=== PATIENT | female | born 1965 | race African-American/Black ===

== ENCOUNTER 2016-12-20 11:15 | Inpatient (IN) | payer OTHER ==
[2016-12-20 12:26] VITALS: BMI 17.2
--- NOTE | 2016-12-20 16:46 | HP ---
CIWA Score - CIWA Score Nausea/Vomitin-Mild Nausea/No Vomiting Muscle Tremors: 3 Anxiety: 3 Agitation: 3 Paroxysmal Sweats: 1-Minimal Palms Moist Orientation: 3-Disoriented Date>2 days Tacttile Disturbances: 0-None Auditory Disturbances: 0-None Visual Disturbances: 2-Mild Sensitivity Headache: 0-None Present CIWA-Ar Total Score: 16 Admission ROS BHS - HPI Chief Complaint: withdrawal sx Allergies/Adverse Reactions: Allergies Allergy/AdvReac Type Severity Reaction Status Date / Time No Known Drug Allergies Allergy Verified 12/20/16 14:04 coconut Allergy Uncoded 12/20/16 14:04 History of Present Illness: 51 yeas old female with long history of alcohol cocaine nicotine dependence, has hiv since 1988, hypertension, asthma and schizophrenia is admitted to detox Exam Limitations: No Limitations - Ebola screening Have you traveled outside of the country in the last 21 days: No Have you had contact with anyone from an Ebola affected area: No Have you been sick,other than usual withdrawal symptoms: No Do you have a fever: No - Review of Systems Constitutional: Chills, Loss of Appetite, Changes in sleep, Unintentional Wgt. Loss, Unexplained wgt Loss EENT: reports: Dental Problems (multiple missing teeth) Respiratory: reports: SOB with Exertion (asthma) Cardiac: reports: No Symptoms Reported GI: reports: Diarrhea, Nausea, Poor Appetite, Poor Fluid Intake, Abdominal cramping : reports: No Symptoms Reported Musculoskeletal: reports: Muscle Pain (legs) Integumentary: reports: Dryness Neuro: reports: Tremors Endocrine: reports: No Symptoms Reported Hematology: reports: No Symptoms Reported Psychiatric: reports: Judgement Intact, Anxious, Depressed Other Systems: Reviewed and Negative Patient History - Patient Medical History Hx Anemia: No Hx Asthma: Yes Hx Chronic Obstructive Pulmonary Disease (COPD): No Hx Cancer: No Hx Cardiac Disorders: No Hx Congestive Heart Failure: No Hx Hypertension: Yes Hx Hypercholesterolemia: No Hx Pacemaker: No HX Cerebrovascular Accident: No Hx Seizures: No Hx Dementia: No Hx Diabetes: No Hx Gastrointestinal Disorders: No Hx Liver Disease: No Hx Genitourinary Disorders: No Hx Sexually Transmitted Disorders: No Hx Renal Disease (ESRD): No Hx Thyroid Disease: No Hx Human Immunodeficiency Virus (HIV): Yes (1988) Hx Hepatitis C: No Hx Depression: No Hx Suicide Attempt: Yes (jump out 14fl window, stop by brother) Hx Bipolar Disorder: No Hx Schizophrenia: Yes - Patient Surgical History Past Surgical History: No Hx Neurologic Surgery: No Hx Cataract Extraction: No Hx Cardiac Surgery: No Hx Lung Surgery: No Hx Breast Surgery: No Hx Breast Biopsy: No Hx Abdominal Surgery: No Hx Appendectomy: No Hx Cholecystectomy: No Hx Genitourinary Surgery: No Hx Section: Yes (1999) Hx Orthopedic Surgery: No - PPD History Previous Implant?: Yes Documented Results: Positive w/o proof Implanted On Prior [facility] Admission?: No PPD to be Administered?: No - Reproductive History Patient is a Female of Child Bearing Age (11 -55 yrs old): Yes Last Menstrual Period: 12/20/96 Patient : No - Smoking Cessation Smoking history: Current every day smoker Have you smoked in the past 12 months: Yes Aproximately how many cigarettes per day: 6 Cigars Per Day: 0 Hx Chewing Tobacco Use: No Initiated information on smoking cessation: Yes 'Breaking Loose' booklet given: 12/20/16 - Substance & Tx. History Hx Alcohol Use: Yes Hx Substance Use: Yes Substance Use Type: Alcohol, Cocaine Hx Substance Use Treatment: Yes - Substances Abused Alcohol Route: Oral Frequency: Daily Amount used: bee1 case/rum91/2 gallon) Age of first use: 13 Date of Last Use: 12/20/16 Crack Route: Smoking Frequency: Daily Amount used: $60 Age of first use: 16 Date of Last Use: 12/19/16 Family Disease History - Family Disease History Family Disease History: Diabetes: Father, CA: Mother, Other: Sister Admission Physical Exam S - Vital Signs Vital Signs: Vital Signs - 24 hr 12/20/16 12:24 Temperature 99.6 F Pulse Rate 113 H Respiratory 20 Rate Blood Pressure 132/87 - Physical General Appearance: Yes: Appropriately Dressed, Mild Distress, Thin, Tremorous, Irritable, Sweating, Anxious HEENTM: Yes: Hearing grossly Normal, Normal ENT Inspection, Normocephalic, Normal Voice Respiratory: Yes: Chest Non-Tender, Lungs Clear, Normal Breath Sounds, No Respiratory Distress, No Accessory Muscle Use Neck: Yes: Supple, Trachea in good position Breast: Yes: Breasts Symetrical Cardiology: Yes: Regular Rhythm, S1, S2, Tachycardia Abdominal: Yes: Non Tender, Soft, Increased Bowel Sounds (diarrhea - kaopectate) Genitourinary: Yes: Within Normal Limits Back: Yes: Normal Inspection Musculoskeletal: Yes: full range of Motion, Gait Steady Extremities: Yes: Normal Range of Motion, Non-Tender, Tremors Neurological: Yes: Alert, Motor Strength 5/5, Normal Response, Depressed Affect Integumentary: Yes: Warm, Clammy Lymphatic: Yes: Within Normal Limits - Diagnostic (1) AIDS (acquired immune deficiency syndrome) Current Visit: Yes Status: Acute Comment: bactrim (2) Alcohol dependence with uncomplicated withdrawal Current Visit: Yes Status: Acute (3) Positive PPD, treated Current Visit: Yes Status: Resolved Comment: chest x ray pending (4) Asthma Current Visit: Yes Status: Acute Qualifiers: Asthma severity: mild intermittent Asthma complication type: with status asthmaticus Qualified Code(s): J45.22 - Mild intermittent asthma with status asthmaticus (5) Hypertension Current Visit: Yes Status: Chronic Qualifiers: Hypertension type: other secondary hypertension Qualified Code(s): I15.8 - Other secondary hypertension Comment: no treatment dietary control (6) Schizophrenia Current Visit: Yes Status: Suspected Qualifiers: Schizophrenia type: disorganized schizophrenia Qualified Code(s): F20.1 - Disorganized schizophrenia (7) Eczema Current Visit: Yes Status: Acute Qualifiers: Eczema type: flexural Qualified Code(s): L20.82 - Flexural eczema (8) Diarrhea Current Visit: Yes Status: Acute Qualifiers: Diarrhea type: due to malabsorption Qualified Code(s): K90.9 - Intestinal malabsorption, unspecified; R19.7 - Diarrhea, unspecified Comment: rule out hiv related (9) Vaginitis Current Visit: Yes Status: Acute Qualifiers: Chronicity: subacute Qualified Code(s): N76.1 - Subacute and chronic vaginitis Cleared for Admission BHS - Detox or Rehab [facility] Level of Care: Medically Managed Detox Regimen/Protocol: Librium [facility] Breath Alcohol Content Breath Alcohol Content: 0 Urine Pregancy Test - Result Urine Test Results: Negative- NO Line Present Urine Drug Screen - Results Drug Screen Negative: No Urine Drug Screen Results: JOSE EDUARDO-Cocaine
[2016-12-20] MEDS ORDERED: chlordiazePOXIDE HCL 25 MG CAPSULE PO PRN (16:50)
[2016-12-20] MEDS ORDERED: IBUPROFEN 400 MG TABLET (FP) PO PRN (16:50)
[2016-12-20] MEDS ORDERED: guaiFENesin/D-METHORPHAN HB 10 ML UNIT-DOSE CUPS PO PRN (16:50)
[2016-12-20] MEDS ORDERED: MAG HYDROX/AL HYDROX/SIMETH 30 ML UNIT-DOSE CUP PO PRN (16:50)
[2016-12-20] MEDS ORDERED: MAGNESIUM HYDROX 2400MG/30ML ORAL SUSPENSION 30 ML CUP PO PRN (16:50)
[2016-12-20] MEDS ORDERED: NICOTINE 14 MG/24 HOURS TOPICAL PATCH TD PRN (16:50)
[2016-12-20] MEDS ORDERED: P-EPHED 60MG/TRIPROLIDI 2.5MG TABLET PO PRN (16:50)
[2016-12-20] MEDS ORDERED: ACETAMINOPHEN 325 MG TABLET (FP) PO PRN (16:50)
[2016-12-20] MEDS ORDERED: MAGNESIUM CITRATE 300 ML BOTTLE PO PRN (16:50)
[2016-12-20] MEDS ORDERED: diphenhydrAMINE HCL 50 MG CAPSULE PO PRN (16:50)
[2016-12-20] MEDS ORDERED: LOPERAMIDE HCL 2 MG CAPSULE PO PRN (16:50)
[2016-12-20] MEDS ORDERED: hydrOXYzine PAMOATE 50 MG CAPSULE (FP) PO PRN (16:50)
[2016-12-20] MEDS ORDERED: MENTHOL/PHENOL 1 EACH UD MM PRN (16:50)
[2016-12-20] MEDS ORDERED: ALBUTEROL SO4 6.7 GM HFA INHALER IH PRN (16:53)
[2016-12-20] MEDS ORDERED: COLLOIDAL OATMEAL 1 BAR EACH TP PRN (16:59)
[2016-12-20] MEDS ORDERED: BISMUTH SUBSALICYLATE 262 MG/15 ML BTL PO ONE (17:15)
[2016-12-20 18:08] LABS: URINE APPEARANCE CLEAR; URINE BILIRUBIN NEGATIVE (NEGATIVE); URINE BLOOD NEGATIVE (NEGATIVE); URINE COLOR YELLOW; URINE GLUCOSE (UA) NEGATIVE (NEGATIVE); URINE KETONE NEGATIVE (NEGATIVE); URINE LEUK ESTERASE NEGATIVE (NEGATIVE); URINE NITRITE NEGATIVE (NEGATIVE); URINE UROBILINOGEN NEGATIVE E.U./dl (0.2-1.0)
[2016-12-20 18:09] LABS: URINE PROTEIN 1+ (NEGATIVE)
[2016-12-20 18:14] LABS: URINE RBC 1 /hpf (0-3); URINE WBC 1 /hpf (3-5)
[2016-12-20] MEDS: THIAMINE HCL 100 MG TABLET (FP) PO SCH (22:21)
[2016-12-20] MEDS: CLOTRIMAZOLE 1% VAGINAL CREAM WITH APPLICATOR 45 GM TUBE VG SCH (22:22)
[2016-12-20] MEDS: chlordiazePOXIDE HCL 25 MG CAPSULE PO SCH (22:22)
[2016-12-20] MEDS: MINERAL OIL/PETROLAT/WATER TOPICAL CREAM 454 GM JAR TP SCH (22:23)
[2016-12-21] MEDS: chlordiazePOXIDE HCL 25 MG CAPSULE PO SCH ×4 (05:39→22:07)
[2016-12-21 09:59] LABS: MCH 33.7 pg (25.7-33.7); MCHC 32.4 g/dl (32.0-36.0); MEAN PLT VOLUME 9.1 fl (7.5-11.1); PLATELET COUNT 135 K/MM3 (134-434); RDW 16.8 % (11.6-15.6); WHITE BLOOD COUNT 2.6 K/mm3 (4.0-10.0)
[2016-12-21 10:18] LABS: ALK PHOS 325 U/L (45-117); ANION GAP 10 (8-16); BILIRUBIN,TOTAL 0.2 mg/dL (0.2-1.0); CALCIUM 8.5 mg/dL (8.5-10.1); CO2 27 mmol/L (21-32); CREATININE 0.8 mg/dL (0.55-1.02); GLUCOSE,RANDOM 131 mg/dL (74-106); SGOT/AST 64 U/L (15-37); SGPT/ALT 51 U/L (12-78); TOT PROT 7.1 g/dl (6.4-8.2)
[2016-12-21] MEDS: PRENATAL VITAMINS W/ FOLIC ACID TABLET (FP) PO SCH (10:19)
[2016-12-21] MEDS: ASPIRIN 81 MG CHEWABLE TABLETS PO SCH (10:19)
[2016-12-21] MEDS: SULFAMETHOXAZOLE/TRIMETHOPRIM 800MG/160MG D.S. TABLET PO SCH (10:19)
--- NOTE | 2016-12-21 11:09 | PN ---
S CIWA - CIWA Score Nausea/Vomitin Muscle Tremors: 2 Anxiety: 2 Agitation: 2 Paroxysmal Sweats: 3 Orientation: 0-Oriented Tacttile Disturbances: 1-Very Mild Itch/Numbness Auditory Disturbances: 0-None Visual Disturbances: 0-None Headache: 0-None Present CIWA-Ar Total Score: 12 BHS Progress Note (SOAP) Subjective: interrupted sleep, sweats, Objective: 12/21/16 11:07 Vital Signs Temperature 99.5 F 12/21/16 10:51 Pulse Rate 122 H 12/21/16 10:51 Respiratory Rate 18 12/21/16 10:51 Blood Pressure 134/84 12/21/16 10:51 O2 Sat by Pulse Oximetry (%) Laboratory Tests 12/20/16 12/21/16 12/21/16 15:04 06:00 06:00 WBC 2.6 L RBC 2.73 L D Hgb 9.2 L D Hct 28.4 L D MCV 104.0 H MCHC 32.4 RDW 16.8 H D Plt Count 135 MPV 9.1 Sodium 141 Potassium 4.1 Chloride 104 Carbon Dioxide 27 Anion Gap 10 BUN 11 Creatinine 0.8 Creat Clearance w eGFR > 60 Random Glucose 131 H D Calcium 8.5 Total Bilirubin 0.2 AST 64 H D ALT 51 D Alkaline Phosphatase 325 H D Total Protein 7.1 Albumin 3.0 L Urine Color Yellow Urine Appearance Clear Urine pH 6.0 Ur Specific [place] 1.021 Urine Protein 1+ H Urine Glucose (UA) Negative Urine Ketones Negative Urine Blood Negative Urine Nitrite Negative Urine Bilirubin Negative Urine Urobilinogen Negative Ur Leukocyte Esterase Negative Urine RBC 1 Urine WBC 1 pt aox3 in nad ambulating Assessment: 12/21/16 11:08 withdrawal sx;s Plan: cont. detox increase fluids
[2016-12-21] MEDS: NICOTINE POLACRILEX 2 MG GUM BC PRN (12:28)
--- NOTE | 2016-12-21 13:46 | CONSULT ---
[facility] Psychiatric Consult - Data Date of interview: 12/21/16 Admission source: [facility] Identifying data: Readmission to [facility] for this 51 y/o AA female seeeking detox treatment for alcohol and crack dependence.Patient is single,a mother of one,homeless,unemployed and supported on food stamps. Substance Abuse History: - Smoking Cessation. Smoking history: Current every day smoker. Have you smoked in the past 12 months: Yes. Aproximately how many cigarettes per day: 6. Cigars Per Day: 0. Hx Chewing Tobacco Use: No. Initiated information on smoking cessation: Yes. 'Breaking Loose' booklet given : 12/20/16. - Substance & Tx. History. Hx Alcohol Use: Yes. Hx Substance Use : Yes. Substance Use Type: Alcohol, Cocaine. Hx Substance Use Treatment: Yes. - Substances Abused. Alcohol. Route: Oral. Frequency: Daily. Amount used: bee1 case/rum91/2 gallon). Age of first use: 13. Date of Last Use: 12/20. Crack. Route: Smoking. Frequency: Daily. Amount used: $60. Age of first use: 16. Date of Last Use: 12/19/16. Confirmed by patient. Medical History: HIV infection since 1988,hypertension and bronchial asthma. Psychiatric History: Patient is a poor and disorganized historian but able to endorse schizophrenia as her principal diagnosis and provide fragments of personal history.She reports previous exposure to seroquel (100 mg po am + 200 mg po hs) and geodon.Ms Bustos remembers past admissions to [facility] in [facility].No current OPD care providers.No recall of date of most recent medication intake.Patient,anyhow,insists on resuming treatment with 300 mg of seroquel a day (two divided doses).She denies history of suicide attempts. Physical/Sexual Abuse/Trauma History: Patient denies. Additional Comment: Urine Drug Screen Results: JOSE EDUARDO-Cocaine.Noted. Mental Status Exam - Mental Status Exam Alert and Oriented to: Time, Place, Person Cognitive Function: Grossly Intact Patient Appearance: Unkempt, Disheveled (thin habitus,somewhat cachectic) Mood: Nervous, Withdrawn, Irritable Affect: Blunted Patient Behavior: Sedated, Fatigued, Cooperative (superficially) Speech Pattern: Clear (non spontaneous;decreased output) Voice Loudness: Normal Thought Process: Disorganized Thought Disorder: Bizarre Hallucinations: Denies Suicidal Ideation: Denies Homicidal Ideation: Denies Insight/Judgement: Poor Sleep: Fair Appetite: Poor, Weight loss Gait/Station: Normal Psychiatric Findings - Problem List ([place] 1, 2,3) (1) Alcohol dependence with uncomplicated withdrawal Current Visit: Yes Status: Acute (2) Cocaine dependence Current Visit: Yes Status: Acute (3) Nicotine dependence Current Visit: Yes Status: Acute (4) Drug-induced mood disorder Current Visit: Yes Status: Acute (5) Schizophrenia Current Visit: Yes Status: Chronic Qualifiers: Schizophrenia type: disorganized schizophrenia Qualified Code(s): F20.1 - Disorganized schizophrenia (6) AIDS (acquired immune deficiency syndrome) Current Visit: Yes Status: Chronic Comment: bactrim (7) Asthma Current Visit: Yes Status: Chronic Qualifiers: Asthma severity: mild intermittent Asthma complication type: with status asthmaticus Qualified Code(s): J45.22 - Mild intermittent asthma with status asthmaticus (8) Eczema Current Visit: Yes Status: Chronic Qualifiers: Eczema type: flexural Qualified Code(s): L20.82 - Flexural eczema (9) Hypertension Current Visit: Yes Status: Chronic Qualifiers: Hypertension type: other secondary hypertension Qualified Code(s): I15.8 - Other secondary hypertension Comment: no treatment dietary control (10) Positive PPD, treated Current Visit: Yes Status: Resolved Comment: chest x ray pending - Initial Treatment Plan Initial Treatment Plan: Psychoeducation.Detoxification.Seroquel 100 mg po hs.Side effects/benefits explained to patient.She agreed to this careplan.Observation.
[2016-12-21 19:51] LABS: URINE APPEARANCE CLOUDY; URINE BILIRUBIN NEGATIVE (NEGATIVE); URINE BLOOD NEGATIVE (NEGATIVE); URINE COLOR YELLOW; URINE GLUCOSE (UA) NEGATIVE (NEGATIVE); URINE KETONE NEGATIVE (NEGATIVE); URINE NITRITE NEGATIVE (NEGATIVE); URINE PROTEIN NEGATIVE (NEGATIVE); URINE UROBILINOGEN NEGATIVE E.U./dl (0.2-1.0)
[2016-12-21 20:02] LABS: URINE LEUK ESTERASE 1+ (NEGATIVE)
[2016-12-21 20:22] LABS: URINE MUCUS RARE; URINE RBC 39 /hpf (0-3); URINE WBC 31 /hpf (3-5)
[2016-12-21] MEDS: THIAMINE HCL 100 MG TABLET (FP) PO SCH (22:06)
[2016-12-21] MEDS: QUEtiapine FUMARATE 100 MG TABLET (FP) PO SCH (22:06)
[2016-12-21] MEDS: CLOTRIMAZOLE 1% VAGINAL CREAM WITH APPLICATOR 45 GM TUBE VG SCH (22:07)
[2016-12-21] MEDS: MINERAL OIL/PETROLAT/WATER TOPICAL CREAM 454 GM JAR TP SCH (22:07)
--- NOTE | 2016-12-21 23:39 | EKG ---
Test Reason : Blood Pressure : / mmHG Vent. Rate : 108 BPM Atrial Rate : 108 BPM P-R Int : 146 ms QRS Dur : 072 ms QT Int : 328 ms P-R-T Axes : 063 064 063 degrees QTc Int : 439 ms SINUS TACHYCARDIA POSSIBLE LEFT ATRIAL ENLARGEMENT LEFT VENTRICULAR HYPERTROPHY ABNORMAL ECG NO PREVIOUS ECGS AVAILABLE Confirmed by SADAF VENEGAS, STAN ([id number]) on 12/21/2016 11:39:09 PM Referred By: Confirmed By:STAN TALAVERA MD
[2016-12-22] MEDS: chlordiazePOXIDE HCL 25 MG CAPSULE PO SCH ×3 (05:25→17:56)
[2016-12-22] MEDS: NICOTINE POLACRILEX 2 MG GUM BC PRN (07:58)
[2016-12-22] MEDS: ASPIRIN 81 MG CHEWABLE TABLETS PO SCH (10:20)
[2016-12-22] MEDS: SULFAMETHOXAZOLE/TRIMETHOPRIM 800MG/160MG D.S. TABLET PO SCH (10:20)
[2016-12-22] MEDS: PRENATAL VITAMINS W/ FOLIC ACID TABLET (FP) PO SCH (10:20)
--- NOTE | 2016-12-22 10:23 | PN ---
S CIWA - CIWA Score Nausea/Vomitin-No Nausea/No Vomiting Muscle Tremors: 4-Moderate,w/Arms Extend Anxiety: 3 Agitation: 3 Paroxysmal Sweats: 3 Orientation: 0-Oriented Tacttile Disturbances: 0-None Auditory Disturbances: 0-None Visual Disturbances: 0-None Headache: 0-None Present CIWA-Ar Total Score: 13 S Progress Note (SOAP) Subjective: agitation sweats interrupted sleep body aches Objective: 12/22/16 10:23 Vital Signs Temperature 100 F H 12/22/16 09:56 Pulse Rate 127 H 12/22/16 09:56 Respiratory Rate 18 12/22/16 09:56 Blood Pressure 123/81 12/22/16 09:56 O2 Sat by Pulse Oximetry (%) Laboratory Tests 12/20/16 12/21/16 12/21/16 15:04 06:00 06:00 WBC 2.6 L RBC 2.73 L D Hgb 9.2 L D Hct 28.4 L D MCV 104.0 H MCHC 32.4 RDW 16.8 H D Plt Count 135 MPV 9.1 Sodium 141 Potassium 4.1 Chloride 104 Carbon Dioxide 27 Anion Gap 10 BUN 11 Creatinine 0.8 Creat Clearance w eGFR > 60 Random Glucose 131 H D Calcium 8.5 Total Bilirubin 0.2 AST 64 H D ALT 51 D Alkaline Phosphatase 325 H D Total Protein 7.1 Albumin 3.0 L Urine Color Yellow Urine Appearance Clear Urine pH 6.0 Ur Specific [place] 1.021 Urine Protein 1+ H Urine Glucose (UA) Negative Urine Ketones Negative Urine Blood Negative Urine Nitrite Negative Urine Bilirubin Negative Urine Urobilinogen Negative Ur Leukocyte Esterase Negative Urine RBC 1 Urine WBC 1 Ur Epithelial Cells Amorphous Urates Urine Mucus RPR Titer 12/21/16 12/21/16 06:00 19:37 WBC RBC Hgb Hct MCV MCHC RDW Plt Count MPV Sodium Potassium Chloride Carbon Dioxide Anion Gap BUN Creatinine Creat Clearance w eGFR Random Glucose Calcium Total Bilirubin AST ALT Alkaline Phosphatase Total Protein Albumin Urine Color Yellow Urine Appearance Cloudy Urine pH 7.0 Ur Specific [place] 1.014 Urine Protein Negative Urine Glucose (UA) Negative Urine Ketones Negative Urine Blood Negative Urine Nitrite Negative Urine Bilirubin Negative Urine Urobilinogen Negative Ur Leukocyte Esterase 1+ H Urine RBC 39 Urine WBC 31 Ur Epithelial Cells Rare Amorphous Urates Moderate Urine Mucus Rare RPR Titer Nonreactive awake/alert lying in bed no acute distress Assessment: 12/22/16 10:27 withdrawal sx Plan: continue detox increase fluids iron supplement tid repeat labs
[2016-12-22] MEDS: FERROUS SO4 325 MG TABLET (FP) PO SCH ×2 (11:58→17:56)
[2016-12-22] MEDS ORDERED: PT OWN MED DRAWER 7, Y5N ONE (21:35)
[2016-12-22] MEDS: chlordiazePOXIDE 5 MG CAPSULE PO SCH (22:09)
[2016-12-22] MEDS: QUEtiapine FUMARATE 100 MG TABLET (FP) PO SCH (22:09)
[2016-12-22] MEDS: THIAMINE HCL 100 MG TABLET (FP) PO SCH (22:09)
[2016-12-22] MEDS: MINERAL OIL/PETROLAT/WATER TOPICAL CREAM 454 GM JAR TP SCH (22:10)
[2016-12-22] MEDS: CLOTRIMAZOLE 1% VAGINAL CREAM WITH APPLICATOR 45 GM TUBE VG SCH (22:10)
[2016-12-23] MEDS: chlordiazePOXIDE 5 MG CAPSULE PO SCH ×3 (06:10→17:52)
[2016-12-23] MEDS: FERROUS SO4 325 MG TABLET (FP) PO SCH ×3 (07:13→17:52)
--- NOTE | 2016-12-23 08:45 | PN ---
BHS Progress Note (SOAP) Subjective: sweats interrupted sleep Objective: 12/23/16 08:44 Vital Signs Temperature 98.1 F 12/23/16 06:27 Pulse Rate 115 H 12/23/16 06:27 Respiratory Rate 16 12/23/16 06:27 Blood Pressure 101/66 12/23/16 06:27 O2 Sat by Pulse Oximetry (%) awake/alert ambulating no acute distress Assessment: 12/23/16 08:45 withdrawal sx Plan: continue detox ensure tid d/c in am
[2016-12-23] MEDS: PRENATAL VITAMINS W/ FOLIC ACID TABLET (FP) PO SCH (10:41)
[2016-12-23] MEDS: ASPIRIN 81 MG CHEWABLE TABLETS PO SCH (10:41)
[2016-12-23] MEDS: SULFAMETHOXAZOLE/TRIMETHOPRIM 800MG/160MG D.S. TABLET PO SCH (10:41)
[2016-12-23] MEDS: CLOTRIMAZOLE 1% VAGINAL CREAM WITH APPLICATOR 45 GM TUBE VG SCH (22:23)
[2016-12-23] MEDS: THIAMINE HCL 100 MG TABLET (FP) PO SCH (22:23)
[2016-12-23] MEDS: QUEtiapine FUMARATE 100 MG TABLET (FP) PO SCH (22:23)
[2016-12-23] MEDS: chlordiazePOXIDE HCL 10 MG CAPSULE PO SCH (22:23)
[2016-12-23] MEDS: MINERAL OIL/PETROLAT/WATER TOPICAL CREAM 454 GM JAR TP SCH (23:32)
[2016-12-24] MEDS: chlordiazePOXIDE HCL 10 MG CAPSULE PO SCH ×2 (05:23→11:10)
[2016-12-24] MEDS: FERROUS SO4 325 MG TABLET (FP) PO SCH ×2 (07:39→12:00)
--- NOTE | 2016-12-24 08:53 | DS ---
[facility] Detox Discharge Summary Admission Date: 12/20/16 Discharge Date: 12/24/16 - History Present History: Alcohol Dependence, Cocaine Dependence, Sedative Dependence - Physical Exam Results Vital Signs: Vital Signs Temperature 98.2 F 12/24/16 06:40 Pulse Rate 105 H 12/24/16 06:40 Respiratory Rate 18 12/24/16 06:40 Blood Pressure 107/77 12/24/16 06:40 O2 Sat by Pulse Oximetry (%) - Treatment Hospital Course: Detox Protocol Followed, Detoxed Safely, Responded well, Discharged Condition Good, Rehab Referral Accepted - Medication Discharge Medications: Ambulatory Orders Quetiapine Fumarate [Seroquel -] 100 mg PO DAILY #30 06/26/15 Quetiapine Fumarate [Seroquel -] 200 mg PO HS #30 06/26/15 Albuterol Sulfate Inhaler - [Ventolin HFA Inhaler -] 1 - 2 inh PO QID #1 inhaler 06/29/15 Sulfamethoxazole/Trimethoprim [Bactrim DS -] 1 tab PO DAILY #30 tablet 06/29/15 Quetiapine Fumarate [Seroquel] 100 mg PO HS #30 tablet 12/21/16 - Diagnosis (1) Alcohol dependence with uncomplicated withdrawal Current Visit: Yes Status: Chronic (2) Cocaine dependence Current Visit: Yes Status: Chronic Qualifiers: Substance use status: uncomplicated Qualified Code(s): F14.20 - Cocaine dependence, uncomplicated (3) Diarrhea Current Visit: Yes Status: Acute Qualifiers: Diarrhea type: due to malabsorption Qualified Code(s): K90.9 - Intestinal malabsorption, unspecified; R19.7 - Diarrhea, unspecified (4) Drug-induced mood disorder Current Visit: Yes Status: Chronic (5) Nicotine dependence Current Visit: Yes Status: Chronic (6) Vaginitis Current Visit: Yes Status: Acute Qualifiers: Chronicity: subacute Qualified Code(s): N76.1 - Subacute and chronic vaginitis (7) AIDS (acquired immune deficiency syndrome) Current Visit: Yes Status: Chronic (8) Asthma Current Visit: Yes Status: Chronic Qualifiers: Asthma severity: mild intermittent Asthma complication type: with status asthmaticus Qualified Code(s): J45.22 - Mild intermittent asthma with status asthmaticus (9) Eczema Current Visit: Yes Status: Chronic Qualifiers: Eczema type: flexural Qualified Code(s): L20.82 - Flexural eczema (10) Hypertension Current Visit: Yes Status: Chronic Qualifiers: Hypertension type: other secondary hypertension Qualified Code(s): I15.8 - Other secondary hypertension (11) Schizophrenia Current Visit: Yes Status: Chronic Qualifiers: Schizophrenia type: disorganized schizophrenia Qualified Code(s): F20.1 - Disorganized schizophrenia (12) Positive PPD, treated Current Visit: Yes Status: Resolved (13) Acute alcohol dependence syndrome Current Visit: Yes Status: Chronic (14) Amphetamine and psychostimulant-induced mood disorder Current Visit: Yes Status: Chronic - AMA Did Patient Leave Against Medical Advice: No
[2016-12-24] MEDS: PRENATAL VITAMINS W/ FOLIC ACID TABLET (FP) PO SCH (09:58)
[2016-12-24] MEDS: NICOTINE POLACRILEX 2 MG GUM BC PRN (09:59)
[2016-12-24 10:10] VITALS: BP 102/63; PULSE 92; TEMP 97.9
[2016-12-24] MEDS: SULFAMETHOXAZOLE/TRIMETHOPRIM 800MG/160MG D.S. TABLET PO SCH (11:00)
[2016-12-24] MEDS: ASPIRIN 81 MG CHEWABLE TABLETS PO SCH (11:00)
== END 2016-12-24 12:10 | disposition home or self-care (01) | DRG 774 ==
LOC: YASAS 11:15 → Y6N 14:39
PROVIDERS: ADMIT Internal Medicine Addiction Medicine; ATTEND Internal Medicine Addiction Medicine
PROC: HZ2ZZZZ Detoxification Services for Substance Abuse Treatment (ICD-10-PCS; principal; 2016-12-24)
DX: F10.230 Alcohol dependence with withdrawal, uncomplicated (principal); F14.20 Cocaine dependence, uncomplicated; F15.10 Other stimulant abuse, uncomplicated; F17.210 Nicotine dependence, cigarettes, uncomplicated; F19.24 Other psychoactive substance dependence with psychoactive substance-induced mood disorder; F20.1 Disorganized schizophrenia; J45.22 Mild intermittent asthma with status asthmaticus; I10 Essential (primary) hypertension; K90.9 Intestinal malabsorption, unspecified; R19.7 Diarrhea, unspecified; N76.1 Subacute and chronic vaginitis; L20.82 Flexural eczema; B20 Human immunodeficiency virus [HIV] disease; R76.11 Nonspecific reaction to tuberculin skin test without active tuberculosis; Z59.0 Homelessness
CPT/HCPCS: 36415; 71020-TC; 80053; 81003; 81015; 85027; 86593; 93005; 93010

== ENCOUNTER 2016-12-24 12:21 | Inpatient (IN) | payer OTHER ==
[2016-12-24] MEDS ORDERED: MAGNESIUM CITRATE 300 ML BOTTLE PO PRN (13:50)
[2016-12-24] MEDS ORDERED: P-EPHED 60MG/TRIPROLIDI 2.5MG TABLET PO PRN (13:50)
[2016-12-24] MEDS ORDERED: MAG HYDROX/AL HYDROX/SIMETH 30 ML UNIT-DOSE CUP PO PRN (13:50)
[2016-12-24] MEDS ORDERED: MENTHOL/PHENOL 1 EACH UD MM PRN (13:50)
[2016-12-24] MEDS ORDERED: ACETAMINOPHEN 325 MG TABLET (FP) PO PRN (13:50)
[2016-12-24] MEDS ORDERED: guaiFENesin/D-METHORPHAN HB 10 ML UNIT-DOSE CUPS PO PRN (13:50)
[2016-12-24] MEDS ORDERED: IBUPROFEN 400 MG TABLET (FP) PO PRN (13:50)
[2016-12-24] MEDS ORDERED: LOPERAMIDE HCL 2 MG CAPSULE PO PRN (13:50)
[2016-12-24] MEDS ORDERED: MAGNESIUM HYDROX 2400MG/30ML ORAL SUSPENSION 30 ML CUP PO PRN (13:50)
[2016-12-24] MEDS ORDERED: ALBUTEROL SO4 6.7 GM HFA INHALER IH PRN (13:52)
[2016-12-24] MEDS ORDERED: FLUCONAZOLE 100 MG TABLET (UD) PO ONE (13:55)
--- NOTE | 2016-12-24 13:59 | HP ---
VONNIE VENEGAS Rehab Assess/Revision - Admission History Ad[facility]hab [facility] Date of Admission to Rehab: 12/24/16 - Vital signs Vital Signs: Vital Signs Period Temp Pulse Resp BP Sys/Sales Pulse Ox Last 24 Hr 98.6 F 128 16 111/79 - Findings Detox History & Physical reviewed: Yes Concur with findings: Yes Comments/Additional Findings: C/O urinary discomfort,has oral thrush and weights only 90lbs. Start Diflucan, Bactrim DS BID, U/A & U/C&S.Give pt a pitcher to increase PO fluid.
[2016-12-24] MEDS: FERROUS SO4 325 MG TABLET (FP) PO SCH ×2 (14:33→21:27)
--- NOTE | 2016-12-24 14:44 | HP ---
Psychiatrist Admission - Data Date of interview: 12/24/16 Admission source: [address] [place] [address] Identifying data: This is the first admission to [address] [place] [address] for this 51 years old AA single mother of 1 adult son , undomiciled,supported by JACKIE(lost her SSI benefits 4 months ago). Medical History: Significant for HIV+ since 1988,HTN,BA,Eczema. Psychiatric History: Patient is poor historian.Reports psychiatric illness since very young age when she was dx with schizophrenia.Patient had 2 psychiatric hospitalizations many years back to [facility],nothing recently.She was on different antipsychotics and mood stabilizers.No regular psychiatric follow up,obtaining psychotropic medications from local ER.Most recent medications: Serqouel 100 mg po am and 200 mg po hs.She was placed on Seroquel 100 mg po hs while in detox this week by . Physical/Sexual Abuse/Trauma History: denies Vital Signs: Vital Signs - 24 hr 12/24/16 13:30 Temperature 98.6 F Pulse Rate 128 H Respiratory 16 Rate Blood Pressure 111/79 Allergies/Adverse Reactions: Allergies Allergy/AdvReac Type Severity Reaction Status Date / Time No Known Drug Allergies Allergy Verified 12/20/16 14:04 coconut Allergy Uncoded 12/20/16 14:04 Date of last physical exam: 12/20/16 Concur with the findings of this exam: Yes - Substance Abuse/Tx History Hx Alcohol Use: Yes (drinking since 13 yo,1 case of beer,gallon of rum) Hx Substance Use: Yes (crack since 16 yo,$100 daily) Substance Use Type: Alcohol, Cocaine Hx Substance Use Treatment: Yes (completed a few senior care treatments many yeaqrs ago) - Admission Criteria Previous failed treatment: Yes Poor recovery environment: Yes Comorbidities: Yes Lacks judgement: Yes Mental Status Exam - Mental Status Exam Alert and Oriented to: Time, Place, Person Cognitive Function: Grossly Intact Patient Appearance: Unkempt Mood: Apathetic Affect: Mood Congruent Patient Behavior: Cooperative Speech Pattern: Clear Voice Loudness: Mildly Soft/Quiet Thought Process: Goal Oriented Thought Disorder: Being Controlled Hallucinations: Denies Suicidal Ideation: Denies Homicidal Ideation: Denies Insight/Judgement: Fair Sleep: Fair Appetite: Fair Muscle strength/Tone: Normal Gait/Station: Normal Psychiatric Findings - Problem List ([place] 1, 2,3) (1) AIDS (acquired immune deficiency syndrome) Current Visit: Yes Status: Chronic Comment: bactrim (2) Amphetamine and psychostimulant-induced mood disorder Current Visit: Yes Status: Chronic (3) Asthma Current Visit: Yes Status: Chronic Qualifiers: (4) Cocaine dependence Current Visit: Yes Status: Chronic Qualifiers: (5) Eczema Current Visit: Yes Status: Chronic Qualifiers: (6) Hypertension Current Visit: Yes Status: Chronic Qualifiers: Comment: no treatment dietary control (7) Schizophrenia Current Visit: Yes Status: Chronic Qualifiers: (8) Alcohol dependence Current Visit: Yes Status: Chronic - Initial Treatment Plan Initial Treatment Plan: Continue Seroquel 100 mg po hs. Will monitor progress.
[2016-12-24] MEDS: THIAMINE HCL 100 MG TABLET (FP) PO SCH (21:27)
[2016-12-24] MEDS: QUEtiapine FUMARATE 100 MG TABLET (FP) PO SCH (21:27)
[2016-12-24] MEDS: SULFAMETHOXAZOLE/TRIMETHOPRIM 800MG/160MG D.S. TABLET PO SCH (21:27)
[2016-12-25] MEDS: FERROUS SO4 325 MG TABLET (FP) PO SCH ×3 (06:50→21:14)
[2016-12-25] MEDS: ASPIRIN 81 MG CHEWABLE TABLETS PO SCH (09:56)
[2016-12-25] MEDS: PRENATAL VITAMINS W/ FOLIC ACID TABLET (FP) PO SCH (09:56)
[2016-12-25] MEDS: SULFAMETHOXAZOLE/TRIMETHOPRIM 800MG/160MG D.S. TABLET PO SCH ×2 (09:56→21:14)
[2016-12-25] MEDS: FLUCONAZOLE 100 MG TABLET (UD) PO SCH (09:56)
[2016-12-25] MEDS: NICOTINE 14 MG/24 HOURS TOPICAL PATCH TD SCH (09:57)
[2016-12-25] MEDS: NICOTINE POLACRILEX 2 MG GUM BUC PRN ×2 (13:42→20:47)
[2016-12-25 18:35] LABS: URINE APPEARANCE SLCLOUDY; URINE BILIRUBIN NEGATIVE (NEGATIVE); URINE BLOOD NEGATIVE (NEGATIVE); URINE COLOR YELLOW; URINE GLUCOSE (UA) NEGATIVE (NEGATIVE); URINE KETONE NEGATIVE (NEGATIVE); URINE NITRITE NEGATIVE (NEGATIVE); URINE PROTEIN NEGATIVE (NEGATIVE); URINE UROBILINOGEN NEGATIVE E.U./dl (0.2-1.0)
[2016-12-25 18:40] LABS: URINE LEUK ESTERASE 3+ (NEGATIVE)
[2016-12-25 18:41] LABS: URINE HYALINE CAST 1 /lpf; URINE MUCUS RARE; URINE RBC 9 /hpf (0-3); URINE WBC 82 /hpf (3-5); YEAST RARE
[2016-12-25] MEDS: QUEtiapine FUMARATE 100 MG TABLET (FP) PO SCH (21:14)
[2016-12-25] MEDS: THIAMINE HCL 100 MG TABLET (FP) PO SCH (21:14)
[2016-12-25] MEDS: diphenhydrAMINE HCL 25 MG CAPSULE (FP) PO PRN (21:15)
[2016-12-25] MEDS ORDERED: PT OWN MED DRAWER 7, Y5N ONE (22:04)
[2016-12-26] MEDS: FERROUS SO4 325 MG TABLET (FP) PO SCH ×3 (06:21→21:13)
[2016-12-26] MEDS: FLUCONAZOLE 100 MG TABLET (UD) PO SCH (09:23)
[2016-12-26] MEDS: PRENATAL VITAMINS W/ FOLIC ACID TABLET (FP) PO SCH (09:23)
[2016-12-26] MEDS: ASPIRIN 81 MG CHEWABLE TABLETS PO SCH (09:23)
[2016-12-26] MEDS: SULFAMETHOXAZOLE/TRIMETHOPRIM 800MG/160MG D.S. TABLET PO SCH ×2 (09:23→21:13)
[2016-12-26] MEDS: NICOTINE 14 MG/24 HOURS TOPICAL PATCH TD SCH (09:24)
[2016-12-26] MEDS: NICOTINE POLACRILEX 2 MG GUM BUC PRN (17:52)
[2016-12-26] MEDS ORDERED: PT OWN MED DRAWER 7, Y5N ONE (19:21)
[2016-12-26] MEDS: THIAMINE HCL 100 MG TABLET (FP) PO SCH (21:13)
[2016-12-26] MEDS: QUEtiapine FUMARATE 100 MG TABLET (FP) PO SCH (21:13)
[2016-12-26] MEDS: diphenhydrAMINE HCL 50 MG CAPSULE PO PRN (21:14)
[2016-12-27] MEDS: FERROUS SO4 325 MG TABLET (FP) PO SCH ×3 (06:47→21:12)
[2016-12-27 07:03] VITALS: PULSE 98
[2016-12-27] MEDS: PRENATAL VITAMINS W/ FOLIC ACID TABLET (FP) PO SCH (10:01)
[2016-12-27] MEDS: ASPIRIN 81 MG CHEWABLE TABLETS PO SCH (10:01)
[2016-12-27] MEDS: SULFAMETHOXAZOLE/TRIMETHOPRIM 800MG/160MG D.S. TABLET PO SCH ×2 (10:01→21:11)
[2016-12-27] MEDS: FLUCONAZOLE 100 MG TABLET (UD) PO SCH (10:01)
[2016-12-27] MEDS: NICOTINE 14 MG/24 HOURS TOPICAL PATCH TD SCH (10:02)
[2016-12-27] MEDS: diphenhydrAMINE HCL 25 MG CAPSULE (FP) PO PRN (13:20)
[2016-12-27] MEDS: NICOTINE POLACRILEX 2 MG GUM BUC PRN (17:53)
[2016-12-27] MEDS: QUEtiapine FUMARATE 100 MG TABLET (FP) PO SCH (21:11)
[2016-12-27] MEDS: THIAMINE HCL 100 MG TABLET (FP) PO SCH (21:12)
[2016-12-27] MEDS: diphenhydrAMINE HCL 50 MG CAPSULE PO PRN (21:12)
[2016-12-28] MEDS: FERROUS SO4 325 MG TABLET (FP) PO SCH (06:47)
[2016-12-28 07:25] VITALS: BP 100/64; TEMP 97.7
[2016-12-28] MEDS ORDERED: PT OWN MED DRAWER 7, Y5N ONE ×2 (09:17→09:31)
[2016-12-28] MEDS: FLUCONAZOLE 100 MG TABLET (UD) PO SCH (09:18)
[2016-12-28] MEDS: ASPIRIN 81 MG CHEWABLE TABLETS PO SCH (09:18)
[2016-12-28] MEDS: PRENATAL VITAMINS W/ FOLIC ACID TABLET (FP) PO SCH (09:18)
[2016-12-28] MEDS: SULFAMETHOXAZOLE/TRIMETHOPRIM 800MG/160MG D.S. TABLET PO SCH (09:18)
--- NOTE | 2016-12-28 09:33 | PN ---
Psychiatric Progress Note Vital Signs: Vital Signs Period Temp Pulse Resp BP Sys/Sales Pulse Ox Last 24 Hr 97.7 F 98 16-18 100/64 Date of Session: 12/28/16 Chief Complaint:: leaving [facility] HPI: Patient is a 51 year old female with history of alcohol, cocaine dependence comorbid Schizophrenia. ROS: HIV+ since 1988,HTN,BA,Eczema medically managed. Current Medications: Active Medications Generic Name Dose Route Start Last Admin Trade Name Freq PRN Reason Stop Dose Admin Acetaminophen 650 mg 12/24/16 13:50 Tylenol - PO Q4H PRN FEVER OR PAIN Al Hydroxide/Mg Hydroxide 30 ml 12/24/16 13:50 Mylanta Oral Suspension - PO Q6H PRN DYSPEPSIA Albuterol Sulfate 2 puff 12/24/16 13:52 Ventolin Hfa Inhaler - IH Q4H PRN ASTHMA Aspirin 81 mg 12/25/16 10:00 12/28/16 09:18 Asa - PO 81 mg DAILY SIERRA Administration Diphenhydramine HCl 50 mg 12/24/16 13:50 12/27/16 21:12 Benadryl - PO 50 mg HSMR1 PRN Administration FOR ITCHING Diphenhydramine HCl 25 mg 12/24/16 15:47 12/27/16 13:20 Benadryl - PO 25 mg Q4H PRN Administration FOR ITCHING Eucalyptus/Menthol/Phenol/Sorbitol 1 each 12/24/16 13:50 Cepastat Lozenge - MM Q4H PRN SORE THROAT Ferrous Sulfate 325 mg 12/24/16 14:00 12/28/16 06:47 Feosol - PO 325 mg TID SIERRA Administration Fluconazole 100 mg 12/25/16 10:00 12/28/16 09:18 Diflucan - PO 100 mg DAILY [facility] Administration Guaifenesin 10 ml 12/24/16 13:50 Robitussin Dm - PO Q6H PRN COUGH Ibuprofen 400 mg 12/24/16 13:50 Motrin - PO Q6H PRN PAIN Loperamide HCl 4 mg 12/24/16 13:50 Imodium - PO Q6H PRN DIARRHEA Magnesium Hydroxide 30 ml 12/24/16 13:50 Milk Of Magnesia - PO DAILY PRN CONSTIPATION Nicotine 14 mg 12/25/16 10:00 12/27/16 10:02 Nicoderm Patch - TD 14 mg DAILY SIER[facility] Administration Nicotine Polacrilex 2 mg 12/24/16 13:50 12/27/16 17:53 Nicorette Gum - BUC 2 mg Q2H PRN Administration NICOTINE REPLACEMENT RX Multivit/Folic Acid/Iron 1 tab 12/25/16 10:00 12/28/16 09:18 Vitamins (Sjr) - PO 1 tab DAILY SIER[facility] Administration Pseudoephedrine/Triprolidine 1 combo 12/24/16 13:50 Actifed - PO TID PRN NASAL CONGESTION Quetiapine Fumarate 100 mg 12/24/16 22:00 12/27/16 21:11 Seroquel - PO 100 mg HS SIERRA Administration Thiamine HCl 100 mg 12/24/16 22:00 12/27/16 21:12 Vitamin B1 - PO 100 mg HS SIERRA Administration Trimethoprim/Sulfamethoxazole 1 each 12/24/16 22:00 12/28/16 09:18 Bactrim Ds - PO 1 each BID SIERRA Administration Current Side Effect: No Lab tests ordered: No Lab tests reviewed: Yes Provider note:: Patient reports that she is leaving [facility], met with the patient to exploe reasons of terminating treatment at this point, reported that her aunt is sick and she needs to be there. Patient was encouraged to stay and focus on her recovery but did not reconsider. Scrips for seroquel provided, patient is stable for ama Total face to face time:: 15 Mental Status Exam - Mental Status Exam Alert and Oriented to: Time, Place, Person Cognitive Function: Grossly Intact Patient Appearance: Well Groomed Mood: Anxious Affect: Appropriate, Mood Congruent Patient Behavior: Appropriate, Cooperative Speech Pattern: Clear, Appropriate Voice Loudness: Normal Thought Process: Goal Oriented Thought Disorder: Not Present Hallucinations: Denies Suicidal Ideation: Denies Homicidal Ideation: Denies Insight/Judgement: Fair Sleep: Fair Appetite: Fair Muscle strength/Tone: Normal Gait/Station: Normal Psychiatric Treatment Plan - Problem List (1) AIDS (acquired immune deficiency syndrome) Current Visit: Yes Comment: bactrim (2) Alcohol dependence Current Visit: Yes (3) Asthma Current Visit: Yes Qualifiers: (4) Cocaine dependence Current Visit: Yes Qualifiers: (5) Hypertension Current Visit: Yes Qualifiers: Comment: no treatment dietary control (6) Schizophrenia Current Visit: Yes Qualifiers:
[2016-12-28] MEDS: NICOTINE 14 MG/24 HOURS TOPICAL PATCH TD SCH (09:35)
--- NOTE | 2016-12-28 14:39 | PN ---
[facility] Progress Note Note: U/C&S is positive for group D strep, pt. was started on Bactrim DS BID on . She signed out AMA this morning. Dx. : UTI
== END 2016-12-28 09:58 | disposition left against medical advice (07) | DRG 770 ==
LOC: YASAS 12:21 → Y3E 12:22
PROVIDERS: ADMIT Psychiatry & Neurology Psychiatry; ATTEND Psychiatry & Neurology Psychiatry
PROC: HZ42ZZZ Group Counseling for Substance Abuse Treatment, Cognitive-Behavioral (ICD-10-PCS; principal; 2016-12-28)
DX: F10.20 Alcohol dependence, uncomplicated (principal); F14.20 Cocaine dependence, uncomplicated; F19.24 Other psychoactive substance dependence with psychoactive substance-induced mood disorder; F20.9 Schizophrenia, unspecified; B20 Human immunodeficiency virus [HIV] disease; L30.9 Dermatitis, unspecified; Z59.0 Homelessness
CPT/HCPCS: 81003; 81015; 87086; 87186